=== PATIENT | male | born 1955 | race Asian ===

== ENCOUNTER 2019-05-19 06:09 | Outpatient (CLI) | payer OTHER | END 2019-05-19 06:18 | disposition short-term general hospital (02) | LOC: AMB 06:09 → EDSTATUS 05-27 15:28 | DX: R40.20 Unspecified coma (principal); S41.111A Laceration without foreign body of right upper arm, initial encounter; V69.9XXA Occupant (driver) (passenger) of heavy transport vehicle injured in unspecified traffic accident, initial encounter; Y92.413 State road as the place of occurrence of the external cause | CPT/HCPCS: A0425; A0427 ==

== ENCOUNTER 2019-10-27 12:07 | Outpatient (CLI) | payer OTHER ==
[2019-10-27 12:58] LABS: POTASSIUM 4.1 mmol/L (3.6-5.2)
== END 2019-10-27 20:11 | disposition home or self-care (01) ==
LOC: LAB 12:07
PROVIDERS: Physical Medicine & Rehabilitation
DX: I10 Essential (primary) hypertension (principal); S06.5X9D Traumatic subdural hemorrhage with loss of consciousness of unspecified duration, subsequent encounter
CPT/HCPCS: 80048; 83735; 84134

== ENCOUNTER 2019-11-06 21:48 | Outpatient (CLI) | payer OTHER ==
[2019-11-06] MEDS ORDERED: GABA300C2 PO (22:25)
[2019-11-06] MEDS ORDERED: METOPROLOL25 M1 PO (22:26)
[2019-11-06] MEDS ORDERED: LISI10TA11 PO (22:27)
[2019-11-06] MEDS ORDERED: ACID CONTROL20 MG PO (22:28)
[2019-11-06] MEDS ORDERED: TRAZODONE HYDRO50 MG PO (22:28)
== END 2019-11-06 21:58 | disposition short-term general hospital (02) ==
LOC: AMB 21:48
DX: G89.29 Other chronic pain (principal); G81.94 Hemiplegia, unspecified affecting left nondominant side; R22.42 Localized swelling, mass and lump, left lower limb; R22.32 Localized swelling, mass and lump, left upper limb
CPT/HCPCS: A0425; A0429

== ENCOUNTER 2019-11-06 22:02 | Emergency (ER) | payer OTHER ==
[~2019-11-06] VITALS: Ht 172.7 cm; Wt 110.2 kg
[2019-11-06] MEDS ORDERED: GABA300C2 PO (22:25)
[2019-11-06] MEDS ORDERED: METOPROLOL25 M1 PO (22:26)
[2019-11-06] MEDS ORDERED: LISI10TA11 PO (22:27)
[2019-11-06] MEDS ORDERED: TRAZODONE HYDRO50 MG PO (22:28)
[2019-11-06] MEDS ORDERED: ACID CONTROL20 MG PO (22:28)
[2019-11-07 00:30] VITALS: BP 120/71; TEMP 98.9
== END 2019-11-07 00:30 | disposition home or self-care (01) ==
LOC: ED 22:02
DX: G89.4 Chronic pain syndrome (principal); Z87.820 Personal history of traumatic brain injury
CPT/HCPCS: 96372; 99282; J1885

== ENCOUNTER 2019-12-28 18:14 | Emergency (ER) | payer OTHER ==
[~2019-12-28] VITALS: Ht 177.8 cm; Wt 114.8 kg
[~2019-12-28 18:14] MED LIST: ACID CONTROL20 MG PO; GABA300C2 PO; LISI10TA11 PO; METOPROLOL25 M1 PO; TRAZODONE HYDRO50 MG PO
[2019-12-28 19:28] LABS: PLATELET COUNT 380 K/uL (142-355)
[2019-12-28 19:38] LABS: POTASSIUM 3.5 mmol/L (3.6-5.2)
[2019-12-28 23:50] VITALS: BP 125/74; TEMP 97.9
== END 2019-12-28 23:53 | disposition home or self-care (01) ==
LOC: ED 18:14
PROVIDERS: Student in an Organized Health Care Education/Training Program
DX: R10.84 Generalized abdominal pain (principal); R11.2 Nausea with vomiting, unspecified; R00.1 Bradycardia, unspecified
CPT/HCPCS: 36415; 80053; 83690; 83735; 85027; 93005; 96360; 96375; 96376; 99284; J1170; J2270; J2405; Q9963

== ENCOUNTER 2020-01-19 09:02 | Outpatient (CLI) | payer OTHER ==
[2020-01-19 09:50] LABS: PLATELET COUNT 342 K/uL (142-355)
[2020-01-19 09:59] LABS: POTASSIUM 3.6 mmol/L (3.6-5.2)
== END 2020-01-19 20:37 | disposition home or self-care (01) ==
LOC: LAB 09:02
PROVIDERS: Physical Medicine & Rehabilitation
DX: S06.9X9A Unspecified intracranial injury with loss of consciousness of unspecified duration, initial encounter (principal)
CPT/HCPCS: 80053; 82533; 84134; 84439; 84443; 85027

== ENCOUNTER 2020-05-24 11:02 | Outpatient (CLI) | payer OTHER ==
[2020-05-24 11:35] LABS: PLATELET COUNT 356 K/uL (142-355)
== END 2020-05-24 21:24 | disposition home or self-care (01) ==
LOC: LAB 11:02
PROVIDERS: Physical Medicine & Rehabilitation
DX: N39.0 Urinary tract infection, site not specified (principal); S06.9X9A Unspecified intracranial injury with loss of consciousness of unspecified duration, initial encounter
CPT/HCPCS: 80053; 81000; 84439; 84443; 85027; 87088